=== PATIENT | female | born 1990 | race African-American/Black ===

== ENCOUNTER 2022-12-27 09:03 | Emergency (ER) | payer SELFPAY ==
[~2022-12-27] VITALS: Ht 162.6 cm; Wt 79.4 kg
[2022-12-27 09:08] VITALS: BP 110/71; PULSE 77; RESP 18; O2SAT 100
[2022-12-27 09:52] LABS: Urine Bacteria FEW /hpf (None Seen); Urine Blood Negative /uL (Negative); Urine Clarity HAZY (Clear); Urine Color Yellow (Yellow); Urine Hyaline Cast FEW /lpf (0 - 2); Urine Mucus FEW (None Seen); Urine Protein, UAD TRACE (Negative); Urine Specific Gravity 1.013 (1.001-1.035); Urine Urobilinogen Normal (Negative); Urine WBC 97 /hpf (0 - 5); Urine pH 6.5 (5.0-8.0)
[2022-12-27] MEDS ORDERED: KETOROLAC TROMETH 60MG/2ML VIAL IM ONE (11:00)
[2022-12-27] MEDS ORDERED: NITROFURANTOIN 100 mg CAP PO ONE (11:00)
[2022-12-27] MEDS ORDERED: CEPH250C PO (11:01)
[2022-12-27] MEDS ORDERED: NAPR-1334 PO (12:36)
== END 2022-12-27 12:37 | disposition left against medical advice (07) ==
LOC: ER 09:03
DX: N39.0 Urinary tract infection, site not specified (principal); N83.209 Unspecified ovarian cyst, unspecified side; J45.909 Unspecified asthma, uncomplicated; Z88.2 Allergy status to sulfonamides
CPT/HCPCS: 76856; 81001; 81025; 99284; J1885

== ENCOUNTER 2023-08-06 00:18 | Emergency (ER) | payer MEDICAID ==
[~2023-08-06] VITALS: Ht 162.6 cm; Wt 90.8 kg
[~2023-08-06 00:18] MED LIST: CEPH250C PO; NAPR-1335 PO
[2023-08-06] MEDS ORDERED: PRED20TA2 PO (01:22)
[2023-08-06] MEDS ORDERED: ALBUAER3 IN (01:22)
[2023-08-06] MEDS ORDERED: CEPH500C PO (01:22)
[2023-08-06] MEDS ORDERED: BENZ200C64 PO (01:22)
[2023-08-06] MEDS: ALBUTEROL SULF 2.5 MG/0.5ML(0.5%) NEB SOLN NEB ONE (01:33)
[2023-08-06] MEDS: IPRATROPIUM BROM 0.5 MG/2.5ML INH SOL NEB ONE (01:33)
[2023-08-06 02:26] VITALS: BP 104/46; PULSE 68; RESP 18; TEMP 98.6; O2SAT 95
[2023-08-06] MEDS: guaiFENesin-CODEINE Liq 5 ML UD PO ONE (02:38)
[2023-08-06] MEDS: methylPREDNISolone SOD SUCC 125 MG/2 ML VL IM ONE (02:38)
== END 2023-08-06 02:39 | disposition home or self-care (01) ==
LOC: ER 00:18
DX: J45.909 Unspecified asthma, uncomplicated (principal)
CPT/HCPCS: 94640; 96372; 99283; J2919; J7644

== ENCOUNTER 2023-11-23 07:30 | Emergency (ER) | payer MEDICAID ==
[~2023-11-23] VITALS: Ht 162.6 cm; Wt 88.1 kg
[~2023-11-23 07:30] MED LIST changes: +ALBUAER3 IN; +BENZ200C64 PO; +CEPH500C PO; +PRED20TA2 PO
[2023-11-23] MEDS ORDERED: TRIA0.02 TOP (08:29)
[2023-11-23] MEDS ORDERED: CEPH500C PO (08:29)
[2023-11-23 09:02] VITALS: BP 127/57; PULSE 64; RESP 16; TEMP 97.3; O2SAT 99
== END 2023-11-23 09:13 | disposition home or self-care (01) ==
LOC: ER 07:30
DX: S40.861A Insect bite (nonvenomous) of right upper arm, initial encounter (principal); T78.40XA Allergy, unspecified, initial encounter; J45.909 Unspecified asthma, uncomplicated; Z88.2 Allergy status to sulfonamides; W57.XXXA Bitten or stung by nonvenomous insect and other nonvenomous arthropods, initial encounter; Y93.89 Activity, other specified; Y92.89 Other specified places as the place of occurrence of the external cause; Y99.8 Other external cause status

== ENCOUNTER 2024-02-04 08:57 | Emergency (ER) | payer MEDICAID ==
[~2024-02-04] VITALS: Ht 162.6 cm; Wt 88.3 kg
[~2024-02-04 08:57] MED LIST changes: +TRIA0.02 TOP
[2024-02-04 09:36] VITALS: BP 136/79; PULSE 88; RESP 19; TEMP 98; O2SAT 95
[2024-02-04] MEDS ORDERED: AUG875T PO (10:27)
[2024-02-04] MEDS ORDERED: PROM1SOL4 PO (10:28)
--- NOTE | 2024-02-04 10:29 | ED.PDOC ---
SOB-HPI HPI Comments This is a 33-year-old female that comes in with 3 days of sore throat and cough with productive green mucus. She also has a runny nose. All 3 of her kids are here today to be seen with similar.. Chief Complaint: Cough Time Seen by MD: 10:19 Primary Care Provider: NONE Reviewed notes: Nurses Notes, Medications, Allergies Information Source: Patient Mode of Arrival: Ambulatory Past Medical History PAST MEDICAL HISTORY: Asthma Surgical History (Other): Hernia CHIEF MEDIA OFFICER History: Denies all CHIEF MEDIA OFFICER Hx Family History Family History: Reviewed,noncontributory to illness Social History Smoker: Non-Smoker Alcohol: Denies ETOH Use Drugs: Denies Drug Use Lives In: Home Constitutional: reports: fever EENTM: reports: nasal discharge, nose congestion, throat pain Respiratory: reports: cough Physical Exam General Appearance: No Apparent Distress HEENT: Pharyngeal Erythema, TMs Normal Neck: Full Range of Motion, Normal, Normal Inspection Respiratory: Lungs Clear, No Respiratory Distress, Normal Breath Sounds Cardiovascular: Regular Rate/Rhythm Breast Exam: Deferred Gastrointestinal: Non Tender, Normal Bowel Sounds Genitalia: Deferred Pelvic: Deferred Rectal: Deferred Extremities: Normal inspection, Normal range of motion Neurologic: Alert, Normal Affect, Normal Mood Cerebellar Function: NOT DONE Reflexes: NOT DONE Skin: Dry, Warm Lymphatic: No Adenopathy Was a procedure done? Was a procedure done?: No Differential Dx Differential Diagnosis: Asthma X-Ray, Labs, Meds, VS Vital Signs Date Time Temp Pulse Resp B/P (MAP) Pulse Ox O2 Delivery O2 Flow Rate FiO2 02/04/24 09:36 88 19 95 Room Air 02/04/24 09:36 98.0 88 19 136/79 (98) 95 98.0 02/04/24 09:30 98.0 88 19 136/79 (98) 95 X-Ray, Labs, Meds, VS Comment Patient seen and examined by me. Patient does have an upper respiratory infection. No wheezing at this time her asthma seems to be under control. I will start her on some antibiotics as well as give her some cough medicine. Instructed to drink lots of liquids to help loosen up the mucus rest Tylenol in Motrin as needed.. Time of 1ST Reevaluation: 10:25 Reevaluation 1ST: Unchanged Patient Education/Counseling: Diagnosis, Treatment, Prognosis, Need For Follow Up Family Education/Counseling: No Family Present Departure 1 Departure Time of Disposition: 10:29 Impression: Primary Impression: Upper respiratory infection, acute Additional Impression: Asthmatic bronchitis Disposition: HOME / SELF CARE / HOMELESS Condition: Good Additional Instructions: Finish antibiotics as directed Drink lots of liquids Use the cough medicine as needed Continue your regular asthma medications as directed e-Prescriptions Promethazine-Dm (Promethazine Dm 6.25-15 mg/5Ml) 1 Shaun Shaun 1 SHAUN PO PRN for 7 Days, #120 ML Prov: FARZANEH BRITOP 02/04/24 Amoxicillin & Pot Clavulanate (AUGMENTIN TABLET) 875 Mg Tb 875 MG PO BID for 10 Days, #20 TAB Prov: FARZANEH BRITOP 02/04/24 Discharged With: Self Critical Care Note Critical Care Time?: No Stability Stability form required: No Heart Score Heart Score: Heart Score Response (Comments) Value History N/A 0 EKG N/A 0 Age N/A 0 Risk Factors N/A 0 Troponin N/A 0 Total 0 FARZANEH BRITO [facility] Feb 04, 2024 10:29
== END 2024-02-04 10:47 | disposition home or self-care (01) ==
LOC: ER 08:57
DX: J06.9 Acute upper respiratory infection, unspecified (principal); J45.909 Unspecified asthma, uncomplicated; Z98.890 Other specified postprocedural states